=== PATIENT | male | born 1940 | race Caucasian/White ===

== ENCOUNTER 2017-07-12 16:36 | Outpatient (CLI) | payer MEDICARE, OTHER ==
[2017-07-12 17:30] LABS: Hematocrit 32.5 % (42.0-52.0); Mean Platelet Volume 5.8 fL (7.4-10.4); Red Blood Cell (RBC) Count 3.44 mill/uL (4.70-6.10); White Blood Cell (WBC) Count 5.2 thou/uL (4.8-10.8)
--- NOTE | 2017-07-12 17:47 | RAD ---
PA AND LATERAL VIEWS OF CHEST: Date: 07/12/17 Time: 1724 hours HISTORY: Shortness of breath. Dyspnea. FINDINGS: Comparison made with exam dated 03/11/16. There are changes of median sternotomy. The heart size is normal. The aorta is tortuous. Lungs are w ell expanded with stable chronic changes. No focal areas of consolidation, pneumothorax, saurabh pulmo nary edema, or pleural effusions are seen. There is continued elevation of the right hemidiaphragm. IMPRESSION: No acute process. POS: [facility]
[2017-07-12 17:57] LABS: Anion Gap 13 mmol/L (10-20); BUN (Urea Nitrogen) 36 mg/dL (8.4-25.7); Calc. Creatinine Clearance 0 mL/min (70-130); Calcium 9.3 mg/dL (7.8-10.44); Carbon Dioxide 29 mmol/L (23-31); Chloride 103 mmol/L (98-107); Estimated GFR-MDRD 31
== END 2017-07-12 16:37 | disposition home or self-care (01) ==
LOC: LABBT 16:36
PROVIDERS: ATTEND Urology
DX: Z01.818 Encounter for other preprocedural examination (principal); N40.1 Benign prostatic hyperplasia with lower urinary tract symptoms; R33.9 Retention of urine, unspecified
CPT/HCPCS: 71020; 80048; 85027

== ENCOUNTER 2017-07-17 06:56 | Day surgery (SDC) | payer MEDICARE, OTHER ==
[2017-07-12 16:48] VITALS: BMI 26.4
[2017-07-17] MEDS ORDERED: Levofloxacin 500 mg/D5W 100 ml Premix Bag ONE (08:13)
[2017-07-17] MEDS ORDERED: Promethazine HCl 25 MG/ML VIAL ONE (09:25)
[2017-07-17] MEDS ORDERED: Fentanyl 250 MCG/5 ML VIAL ONE (09:25)
[2017-07-17] MEDS ORDERED: Phenylephrine 10 MG/NS 250 ML 250 ML ONE (09:25)
[2017-07-17] MEDS ORDERED: Furosemide 20 MG/2 ML VIAL ONE (11:10)
[2017-07-17] MEDS ORDERED: Fentanyl 100 MCG/2 ML VIAL ONE (11:46)
--- NOTE | 2017-07-17 12:12 | EKG ---
Test Reason : PREOP Blood Pressure : / mmHG Vent. Rate : 062 BPM Atrial Rate : 000 BPM P-R Int : 000 ms QRS Dur : 092 ms QT Int : 462 ms P-R-T Axes : 000 039 030 degrees QTc Int : 468 ms Atrial fibrillation with slow rate Nonspecific ST-T changes Abnormal ECG When compared with ECG of 02-DEC-2013 08:09, QT has lengthened Confirmed by DR. Loc BECERRA ([id number]) on 07/17/2017 12:11:51 PM Referred By: ESTIVEN TORRES Confirmed By:DR. Loc BECERRA
--- NOTE | 2017-07-17 12:35 | OP ---
DATE OF PROCEDURE: 07/17/2017 PREOPERATIVE DIAGNOSES: Benign prostatic hypertrophy with prior retention, only recently voiding as well as urinary tract infections. POSTOPERATIVE DIAGNOSES: Benign prostatic hypertrophy with prior retention, only recently voiding as well as urinary tract infections. PROCEDURE: GreenLight laser vaporization of prostate with enucleation of the middle lobe, using 220,577 joules. SPECIMENS: Prostate. COMPLICATIONS: None. DRAINS: Remaining 20-Anguillan 2-way. FINDINGS: Enucleation of the large middle lobe, good stream after adequate resection and catheter removed. INDICATIONS: The patient is a 76-year-old male, who was followed in the office for retention. He has also had multiple urinary tract infections. This was all due to BPH, so he was set up for definitive GreenLight laser vaporization of the prostate. However, the week prior to this anticipated date, he actually was able to start voiding and so he had been without a catheter for approximately several days until we brought him to the OR. The patient was brought to the room by anesthesia, lying on table in supine position. After receiving general anesthetic, his legs were placed in lithotomy position, perineum was prepped and draped in usual fashion. Using a 22.5-Anguillan scope and 30-degree lens, it was traversed and the bladder inspected. No lesions were noted. There was debris that was irrigated out. The ureteral orifices were identified in normal position and far enough away from the bladder neck. They were spared throughout the case. A power level of 80 was used to enucleate the middle lobe and then a power level of 80 was used at the bladder neck on the lateral lobes, a power level of 180 was used at the mid gland, and again a power level of 80 was used towards the ureter itself. After a significant amount of resection was done, this scope was removed and the stream was not as good as it was hoped, so further resection occurred both near the view to flatten down the middle lobe as well as at the trigonal ridge, which was taken down to the level of the bladder floor itself. When the scope was removed a good stream was noted. Scope was put back in and some bleeding was noted in anterior and left components, so further vaporization and hemostasis was performed in these areas until there was minimal bleeding noted. Then, the chips were ensured to be all out and sent for specimen. The scope was removed the final time and a 20-Anguillan catheter was placed to gravity. The patient tolerated the procedure well and was then awakened and transferred back in stable condition. ADELINE
[2017-07-17] MEDS ORDERED: Lidocaine 1% PF 5 ML VIAL ONE (14:39)
[2017-07-17] MEDS ORDERED: PHENYLEPHRINE-NS 100 MCG/ML 10 ML SYRINGE ONE (14:39)
[2017-07-17] MEDS ORDERED: Dexamethasone 20 MG/5 ML VIAL ONE (14:39)
[2017-07-17] MEDS ORDERED: Glycopyrrolate 0.2 MG/ML 5 ML SYRINGE ONE (14:39)
[2017-07-17] MEDS ORDERED: Ondansetron HCl/PF 4 MG/2 ML Vial ONE (14:39)
[2017-07-17] MEDS ORDERED: Propofol 200 MG/20 ML VIAL ONE (14:39)
[2017-07-17] MEDS ORDERED: ePHEDrine/0.9% NaCl/PF SYRINGE 50 mg/10 ml ONE (14:39)
== END 2017-07-17 14:00 | disposition home or self-care (01) ==
LOC: SDC 06:56
PROVIDERS: ATTEND Urology
PROC: 0V508ZZ Destruction of Prostate, Via Natural or Artificial Opening Endoscopic (ICD-10-PCS; principal; 2017-07-17)
DX: N40.1 Benign prostatic hyperplasia with lower urinary tract symptoms (principal); R33.9 Retention of urine, unspecified; E11.9 Type 2 diabetes mellitus without complications; I25.10 Atherosclerotic heart disease of native coronary artery without angina pectoris; M19.90 Unspecified osteoarthritis, unspecified site; I48.91 Unspecified atrial fibrillation; Z95.1 Presence of aortocoronary bypass graft; Z79.899 Other long term (current) drug therapy; Z98.890 Other specified postprocedural states; Z87.440 Personal history of urinary (tract) infections; Z82.49 Family history of ischemic heart disease and other diseases of the circulatory system; Z83.3 Family history of diabetes mellitus
CPT/HCPCS: 88305; 93005; 93010; 96374; J1100; J1940; J1956; J2001; J2405; J2550; J2704; J3010

== ENCOUNTER 2018-08-22 09:40 | Outpatient (CLI) | payer MEDICARE, OTHER ==
--- NOTE | 2018-08-22 11:52 | PET ---
PET CT OF BRAIN: HISTORY: 77-year-old male with Alzheimer's disease with late onset. TECHNIQUE: PET CT of the brain was performed following the intravenous administration of 9.6 mCi F18-FDG in the left antecubital fossa. Imaging is performed after an uptake interval of 49 minutes. FINDINGS: Fairly symmetric tracer distribution is seen in the cerebral hemispheres bilaterally. No temporoparie neftali hypometabolism is seen. IMPRESSION: Unremarkable exam. POS: [facility]
--- NOTE | 2018-08-22 12:23 | CT ---
CT OF HEAD NONCONTRAST: INDICATION: Alzheimer's dementia/Alzheimer's disease. COMPARISON: Reference is made to 08/06/2017 exam. FINDINGS: There is stable prominence of the ventricular system with periventricular white matter hypoattenuatio n. Parenchymal volume loss is similar. There is no intracranial hemorrhage, mass effect, or midline shift. Chronic ischemic disease is similar-appearing. IMPRESSION: 1. Stable head CT with parenchymal atrophy and compensatory dilatation of the ventricular system. 2. Microvascular ischemic disease is redemonstrated. There is no acute intracranial hemorrhage or m ass effect. POS: [facility]
== END 2018-08-22 09:41 | disposition home or self-care (01) ==
LOC: PET 09:40 → CT 09:41
PROVIDERS: ATTEND Psychiatry & Neurology Neurology
DX: G30.1 Alzheimer's disease with late onset (principal); G31.9 Degenerative disease of nervous system, unspecified; I67.9 Cerebrovascular disease, unspecified
CPT/HCPCS: 70450; 78608; A9552

== ENCOUNTER 2018-10-07 12:06 | Outpatient (CLI) | payer MEDICARE, OTHER ==
--- NOTE | 2018-10-07 14:29 | ULT ---
RENAL SONOGRAM: HISTORY: Prostatic hypertrophy. Dysuria. FINDINGS: The right kidney is 9.5 cm with diffuse cortical thinning. No hydronephrosis. Complex cyst at the s uperior pole measures up to 2.0 cm. The left kidney is 12.7 cm. Dilatation of the left ureter appears greater than on the 05/24/2017 CT e xam. Small cysts are present at the superior pole measuring up to 1.0 cm. No hydronephrosis. The l arge exophytic cyst at the inferior pole of the left kidney on prior CT is not well documented on denae dey's sonogram. Urinary bladder is incompletely distended. Bilateral ureteral jets are visualized. IMPRESSION: 1. Left ureter is dilated up to 3.4 cm. This appears greater than on the CT from 05/24/2017. Bilate ral ureteral jets are seen in the urinary bladder. 2. Bilateral renal cysts. POS: [facility]
== END 2018-10-07 12:07 | disposition home or self-care (01) ==
LOC: BICULT 12:06
PROVIDERS: ATTEND Urology
DX: N40.1 Benign prostatic hyperplasia with lower urinary tract symptoms (principal); N28.1 Cyst of kidney, acquired; N28.82 Megaloureter
CPT/HCPCS: 76770

== ENCOUNTER 2018-10-14 14:44 | Outpatient (CLI) | payer MEDICARE, OTHER ==
--- NOTE | 2018-10-14 16:54 | CT ---
CT ABDOMEN AND PELVIS WITHOUT IV CONTRAST: Technique: Multiple contiguous axial images were obtained of the abdomen and pelvis without IV enhanc ement. Indications: Hematuria. Stone protocol was requested. Comparison: CT abdomen and pelvis, 05-24-17. FINDINGS: Images through the lung bases again show elevated right hemidiaphragm which appears stable. Mild atel ectasis in the right lung base. Cyst in the mid right lobe of liver is stable from the prior exam. Liver, spleen, and pancreas otherwise unremarkable. There continues to be abnormal density layering dependently in the gallbladder consistent with tiny g allstones, similar to prior exam. Adrenal glands unremarkable. Review of kidneys reveals no evidence of hydronephrosis. No evidence of urinary tract calculus. The u reters are normal caliber. There is exophytic low densities lesions arising from the superior left kidney measuring 2 cm which i s stable. There are several subcentimeter exophytic lesions arising from the anterior left renal bonnie ex, at least one of which is hyperdense. These appear stable. The prior exam revealed a large exophytic mass from the inferior left kidney measuring up to 10-12 cm . This cystic lesion has significantly decreased in size. It now has a regular shape and measures 5 c m x 3.8 cm in the axial plane today. Probable small cystic lesion in the right renal cortex which is poorly defined measuring approximatel y 1.0 cm. Small bowel loops are normal caliber. Review of the colon reveals extensive sigmoid diverticulosis wi thout CT evidence for diverticulitis. Aortic shows atherosclerotic calcification. No aneurysm. Osseous structures are unremarkable. IMPRESSION: 1. No evidence of urinary tract calculus or hydronephrosis. 2. An irregularly shaped cystic lesion which is exophytic from the lower pole of the left kidney has significantly decreased in size when compared to 05-24-17 exam. It now has irregular borders with nancy urements above. 3. There are other renal densities, some of which are cystic and at least one of which is hyperdense involving the left renal cortex. Enhancing masses cannot be excluded on this unenhanced study. Consid er further evaluation with IV contrast given the history of hematuria. 4. Hepatic cyst. 5. Cholelithiasis again noted. 6. Diverticulosis of the sigmoid. 7. Incidentally noted is an anterior abdominal wall hernia to the left of midline superior to the umb ilicus with abdominal wall defect measuring approximately 3.7 cm. There is also a small umbilical her dianelys present. 8. Elevated right hemidiaphragm is stable in appearance. POS: [facility]
== END 2018-10-14 14:45 | disposition home or self-care (01) ==
LOC: BICCT 14:44
PROVIDERS: ATTEND Urology
DX: R31.29 Other microscopic hematuria (principal); K76.89 Other specified diseases of liver; K80.20 Calculus of gallbladder without cholecystitis without obstruction; N28.89 Other specified disorders of kidney and ureter; Q79.1 Other congenital malformations of diaphragm; K57.30 Diverticulosis of large intestine without perforation or abscess without bleeding; K42.9 Umbilical hernia without obstruction or gangrene
CPT/HCPCS: 74176; 81001; 87086; 88112

== ENCOUNTER 2019-02-18 17:52 | Inpatient (IN) | payer MEDICARE ==
[2019-02-18] MEDS ORDERED: hydrALAZINE 20 MG/ML VIAL ONE (19:23)
--- NOTE | 2019-02-18 19:57 | PDOC.FPRHP ---
- History of Present Illness Chief Complaint: SOB History of Present Illness: This is an 78 yo male with a pmh of HTN, HLD, BPH, CHF, MARYLU, DM2, CKD 3 who presents to the ED from [place] [facility] with a cc of SOB. Pt and reports Sunday he noticed increased SOB. Denies chest pain, dizziness. Started taking double lasix at that time which helped. This morning is breathing worsened. Pt takes 10 mg of lasix daily normally. Dr. Chaves has been trying take pt off lasix due to renal function. denies home O2 but pt dose us CPAP at night CHF, CKD, HTN, DM2, MARYLU, no cpap ED Course: hydralazine 10 mg - Allergies/Adverse Reactions Allergies Allergy/AdvReac Type Severity Reaction Status Date / Time No Known Allergies Allergy Verified 02/19/19 06:05 - Home Medications Medication Instructions Recorded Confirmed Type Calcium Carbonate/Vitamin D3 500 tab PO DAILY 11/02/14 02/18/19 History [Calcium 600 + Vitamin D 400] DULoxetine [Cymbalta] 60 mg PO DAILY 11/02/14 02/18/19 History Diltiazem HCl [Cardizem LA] 240 mg PO DAILY 11/02/14 02/18/19 History Fish Oil 1,200 mg PO BID 11/02/14 02/18/19 History Lactobacillus Acidophilus 1 tab PO BID 11/02/14 02/18/19 History [Acidophilus] Multivitamin [Daily Multiple 1 tablet PO DAILY 11/02/14 02/18/19 History Vitamin] Rivastigmine Patch [Exelon Patch] 13.3 mg TOP Q24HR 11/02/14 02/18/19 History Simvastatin 10 mg PO HS 11/02/14 02/18/19 History Carvedilol [Coreg] 12.5 mg PO BID 05/15/17 02/18/19 History Docusate [Colace] 100 mg PO BID 05/15/17 02/18/19 History Dulaglutide [Trulicity] 0.75 mg SC Q7D 05/15/17 02/18/19 History Ferrous Sulfate [Feosol] 325 mg PO DAILY 05/15/17 02/18/19 History Loratadine [Claritin] 10 mg PO HS 05/15/17 02/18/19 History Ubidecarenone [Coenzyme Q-10] 200 mg PO DAILY 05/15/17 02/18/19 History Finasteride [Proscar] 5 mg PO DAILY #30 tab NS 06/13/17 02/18/19 Rx Apixaban [Eliquis] 5 mg PO BID tab 08/07/17 02/18/19 Rx Allopurinol [Zyloprim] 100 mg PO DAILY 02/18/19 02/18/19 History Furosemide [Lasix] 20 mg PO DAILY 02/18/19 02/18/19 History Potassium Chloride [K-Dur] 20 meq PO DAILY 02/18/19 02/18/19 History - History PMHx: Melanoma, PSHx: CABG 1999, Left knee replacement, Hip replacement 2017, hernia repair x2 FHx: non contributory Social: Social drinking, denies smoking or drug use - Review of Systems General: denies: fever/chills Eyes: denies: eye pain, vision changes ENT: reports: nasal congestion. denies: rhinorrhea Respiratory: reports: cough, shortness of breath, exercise intolerance Cardiovascular: reports: orthopnea. denies: chest pain, palpitation, edema, paroxysmal nocturnal dyspnea Gastrointestinal: denies: nausea, vomiting, diarrhea, constipation, abdominal pain Genitourinary: denies: incontinence Skin: denies: rashes, lesions Musculoskeletal: denies: pain, tenderness Neurological: denies: numbness, syncope Psychological: denies: anxiety, depression - Vital signs BP: 167/103 HR: 69 RR: 20 Tmax: 97.7 Pox: 94% on ra Wt: 97 kg - Physical Exam Constitutional: NAD, well developed, other (AAO to person and place, baseline) HEENT: normocephalic and atraumatic, PERRLA, conjunctiva clear, grossly normal vision, grossly normal hearing, MMM Neck: other (JVD, hepatojugular reflex) Chest: no-tender to palpation, no lesions Heart: normal S1/S2, no murmurs/rubs/gallops, pulses present, other -Heart: regular rate, irregular rhythm Lungs: good air movement, other (crackles at bilateral bases) Abdomen: soft, bowel sounds present, no masses/distention Musculoskeletal: normal structure, ROM grossly normal Neurological: CN II-XII intact Skin: good turgor, capillary refill <2 seconds Heme/Lymphatic: no unusual bruising or bleeding Psychiatric: normal mood and affect FMR H&P: Results - Labs Result Diagrams: 02/19/19 04:34 02/19/19 04:34 - Radiology Interpretation Chest x-ray Status: report reviewed by me (interstitial prominence bilaterally. Lung base obscured bu elevated right hemidiaphragm) FMR H&P: A/P - Problem List (1) CHF (congestive heart failure) Current Visit: Yes Status: Acute Code(s): I50.9 - HEART FAILURE, UNSPECIFIED (2) Benign hypertension Current Visit: No Status: Chronic Code(s): I10 - ESSENTIAL (PRIMARY) HYPERTENSION (3) Hypertension Current Visit: No Status: Chronic Code(s): I10 - ESSENTIAL (PRIMARY) HYPERTENSION (4) Type 2 diabetes mellitus Current Visit: No Status: Chronic - Plan This is an 78 yo male with a pmh of HTN, HLD, CHF, afib, CKD 3 Acute hypoxic respiratory failure 2/2 CHF exacerbation -Admit to tele -BNP 189, troponin negative x3 -Start on lasix 20mg IV BID -No echo on file, pending echo -Pending procal Afib rate controlled -Continue home diltiazem HTN -Continue home meds Hypothyroidism -Continue home meds Dementia -Encourage redirection and stimulation during the day MARYLU -Continue CPAP DM2 -Continue home meds Code: Full Prophylaxis: Dedra Family: and son at bedside Fluids: SL Diet: HH, CC, fluid restriction Disposition: DC in 2-3 days PCP: [facility] FMR H&P: Upper Level - Plan Date/Time: 02/18/191951 Sumeet Chavez MD, have evaluated this patient and agree with findings/plan as outlined by internal medicine nurse practitioner resident. Pertinent changes/additions are listed here. 78 y/o M w/ PMHx of CHF and CKD4 presents as a transfer from [place] ER for suspected CHF exacerbation. Per , pt w/ increased WOB which started this past Sunday which improved after doubling up on his home dose of Lasix. However , this returned this AM. Has not been given an additional dose of Lasix prior to going to the ER. Denies any fever, worsening resp status in the supine position, LE edema. Reports he never gets LE swelling w/ his CHF exacerbations. Does report a mild cough w/ some mucous production. No fever/chills. Vitals per internal medicine nurse practitioner note Trop 0.034 (baseline) EKG A-fib, rate 70s. Occasional PVCs CXR Pulm vasc congestion w/ R-pleural effusion Exam Crackles bases b/l R>L w/ scattered wheezes. No LE edema 78 y/o M w/: 1) CHF exacerbation - Pt w/ subjective SOB and pulm vasc congestion on imaging consistent w/ CHF exac. - BNP not very elevated from prior ER visits, but exam and sxs consistent - Will continue to diurese w/ strict I/Os, daily weights, and 1500 cc/day fluid restrict - Cont. w/ home CHF medications - Will check procal to r/o possible underlying PNA as well - Consider touching base w/ nephron in the AM given his hx of CKD if having difficulty with diuresis and worsening of his renal fxn 2) Other chronic problems per internal medicine nurse practitioner note Addendum - Attending - Attending Attestation Date/Time: 02/19/19 2109 I personally evaluated the patient and discussed the management with Dr. Daniel last night. See separate note. I agree with the History, Examination, Assessment and Plan documented above with any addition or exceptions noted below.
[2019-02-18 20:02] LABS: CKMB 2.7 ng/mL (0-6.6)
[2019-02-18] MEDS ORDERED: HumaLOG 300 UNITS/3 ML VIAL SC PRN ×2 (22:33)
[2019-02-18] MEDS ORDERED: Dextrose 50% Abboject 50 ML SYRINGE SLOW IVP PRN (22:33)
[2019-02-18] MEDS ORDERED: Ondansetron PF 4 MG/2 ML Vial IVP PRN (22:33)
[2019-02-18] MEDS ORDERED: Acetaminophen 325 MG TAB PO PRN (22:33)
[2019-02-18] MEDS ORDERED: Ondansetron ODT 4 MG TAB PO PRN (22:33)
[2019-02-18] MEDS ORDERED: Dextrose 5% in Water 1,000 ML IV PRN (22:33)
[2019-02-18] MEDS ORDERED: Acetaminophen 650 MG Suppository PR PRN (22:33)
[2019-02-18 22:40] VITALS: BMI 27.0
[2019-02-18 23:23] LABS: Troponin I 0.029 ng/mL (< 0.028)
[2019-02-18] MEDS ORDERED: DULAGLUTIDE 0.75 MG SC SCH (23:30)
--- NOTE | 2019-02-18 23:49 | PDOC.EVN ---
Event Note - Event Note Event Note: Date/Time: 02/18/19 2724 I personally evaluated the patient and discussed the management with Dr. Heath at time of admission. H&P pending. I agree with the History, Examination, Assessment and Plan as discussed. I think there is significant bronchitis present. Will start steroids and scheduled albuterol treatment.
[2019-02-19] MEDS: hydrALAZINE 20 MG/ML VIAL SLOW IVP PRN ×2 (00:02→04:16)
[2019-02-19] MEDS: Rivastigmine 9.5mg/24 Hour PATCH TOP SCH (00:02)
[2019-02-19] MEDS ORDERED: Albuterol Sulfate 2.5 mg/3 ml Neb ONE (00:07)
[2019-02-19 01:49] LABS: Troponin I 0.026 ng/mL (< 0.028)
[2019-02-19] MEDS: Albuterol Sulfate 2.5 mg/3 ml Neb NEB SCH ×6 (02:12→22:30)
[2019-02-19] MEDS: Furosemide 20 MG/2 ML VIAL SLOW IVP SCH ×2 (04:16→14:56)
[2019-02-19 05:30] LABS: #Eosinphils 0.6 thou/uL (0.0-0.7); #Lymphocytes 1.6 thou/uL (1.20-3.40); #Monocytes 0.5 thou/uL (0.11-0.59); #Neutrophils 3.8 thou/uL (1.40-6.50); %Basophils 0.4 % (0.0-1.0); %Eosinophils 8.8 % (0.0-10.0); %Lymphocytes 24.7 % (21.0-51.0); %Monocytes 7.6 % (0.0-10.0); %Neutrophils 58.4 % (42.0-75.0); Hemoglobin 11.3 g/dL (14.0-18.0); Mean Corpuscular HGB CONC 33.9 g/dL (32.0-36.0); Mean Corpuscular Hemoglobin 33.8 pg (27.0-31.0); Mean Corpuscular Volume 99.7 fL (78.0-98.0); Mean Platelet Volume 6.4 fL (7.4-10.4); Platelet Count 195 thou/uL (130-400); RBC Distribution Width 15.3 % (11.5-14.5); Red Blood Cell (RBC) Count 3.35 mill/uL (4.70-6.10); White Blood Cell (WBC) Count 6.4 thou/uL (4.8-10.8)
[2019-02-19 05:57] LABS: Anion Gap 15 mmol/L (10-20); BUN (Urea Nitrogen) 33 mg/dL (8.4-25.7); Calc. Creatinine Clearance 34 mL/min (70-130); Calcium 9.7 mg/dL (7.8-10.44); Carbon Dioxide 27 mmol/L (23-31); Chloride 106 mmol/L (98-107); Estimated GFR-MDRD 26; Glucose 127 mg/dL (83-110); Potassium 3.3 mmol/L (3.5-5.1); Sodium 145 mmol/L (136-145)
[2019-02-19] MEDS: Saccharomyces boulardii 250 MG CAP PO SCH ×2 (08:42→21:42)
[2019-02-19] MEDS: Potassium Chloride 20 MEQ TAB PO SCH (08:43)
[2019-02-19] MEDS: Ferrous Sulfate 325 MG TAB PO SCH (08:43)
[2019-02-19] MEDS: Apixaban 5 MG TAB PO SCH ×2 (08:43→21:43)
[2019-02-19] MEDS: Docusate 100 MG CAP PO SCH ×2 (08:44→21:43)
[2019-02-19] MEDS: Ubidecarenone 50 MG CAP PO SCH (08:44)
[2019-02-19] MEDS: Finasteride 5 MG TAB PO SCH (08:44)
[2019-02-19] MEDS: Multivitamin W/ Minerals 1 TAB PO SCH (08:44)
[2019-02-19] MEDS: Allopurinol 100 MG TAB PO SCH (08:44)
[2019-02-19] MEDS: DULoxetine 60 MG CAP PO SCH (08:45)
[2019-02-19] MEDS: prednisoLONE 10 MG ODT TAB PO SCH (08:45)
[2019-02-19] MEDS: Carvedilol 6.25 MG TAB PO SCH ×2 (08:53→21:44)
--- NOTE | 2019-02-19 08:56 | PDOC.FM ---
- Subjective Subjective: Patient reports his SOB has improved. He is resting comfortably on 2L O2 by NC. He denies any chest pain, palpitations, edema. He does report some wheezing and cough. Denies any fever, chills, N/V. He is tolerating PO. He reports that Dr. Chaves had him only taking his lasix prn recently due to his declining kidney function. - Objective MAR Reviewed: Yes Vital Signs & Weight: Vital Signs (12 hours) Temp Pulse Resp BP Pulse Ox 02/19/19 08:44 85 02/19/19 07:50 97.8 F 85 18 159/89 H 98 02/19/19 06:33 94 L 02/19/19 06:32 85 16 94 L 02/19/19 05:05 166/92 H 02/19/19 03:52 97.3 F L 86 20 191/86 H 92 L 02/19/19 02:14 93 L 02/19/19 02:12 80 16 93 L 02/19/19 00:02 73 02/18/19 22:17 97.5 F L 73 18 198/107 H 99 Weight Weight 97.114 kg I&O: 02/18/19 02/19/19 02/20/19 06:59 06:59 06:59 Intake Total 200 Output Total 400 Balance -200 Result Diagrams: 02/19/19 04:34 02/19/19 04:34 Phys Exam - Physical Examination Constitutional: NAD HEENT: moist MMs, sclera anicteric Respiratory: no rales, no rhonchi few scattered wheezes, poor air movement in bilateral lower lobes irregular rhythm, regular rate, no murmur Gastrointestinal: soft, non-tender, no distention, positive bowel sounds Musculoskeletal: no edema, pulses present Neurological: non-focal, moves all 4 limbs Psychiatric: normal affect, A&O x 3 Skin: normal turgor, cap refill <2 seconds Dx/Plan (1) Acute respiratory failure with hypoxia Code(s): J96.01 - ACUTE RESPIRATORY FAILURE WITH HYPOXIA Status: Acute (2) Acute exacerbation of CHF (congestive heart failure) Code(s): I50.9 - HEART FAILURE, UNSPECIFIED Status: Acute (3) HLD (hyperlipidemia) Code(s): E78.5 - HYPERLIPIDEMIA, UNSPECIFIED Status: Acute (4) MARYLU on CPAP Code(s): G47.33 - OBSTRUCTIVE SLEEP APNEA (ADULT) (PEDIATRIC); Z99.89 - DEPENDENCE ON OTHER ENABLING MACHINES AND DEVICES Status: Acute (5) A-fib Code(s): I48.91 - UNSPECIFIED ATRIAL FIBRILLATION Status: Acute (6) CAD (coronary artery disease) Code(s): I25.10 - ATHSCL HEART DISEASE OF [place] CORONARY ARTERY W/O ANG PCTRS Status: Acute (7) Hypertension Code(s): I10 - ESSENTIAL (PRIMARY) HYPERTENSION Status: Chronic (8) Type 2 diabetes mellitus Status: Chronic (9) Hypokalemia Code(s): E87.6 - HYPOKALEMIA Status: Acute - Plan Plan: Acute hypoxic respiratory failure 2/2 CHF exacerbation BNP 189, troponin negative x3 -lasix 20mg IV BID -Echo -Strict I/O's -Daily weights -Fluid restrict JAYME on CKDIII Andie has been concerned about worsened renal function -Will give lasix, but monitor closely. -If unable to diurese without worsening kidney function, then will consult Dr. Chaves -Avoid other nephrotoxic agents Hypokalemia Likely 2/2 lasix -Will replete and monitor Afib rate controlled -Continue home diltiazem HTN -Continue home meds MARYLU -Continue CPAP at night DM2 -Continue home meds -Accuchecks ACHS -Diabetic diet Code: Full Prophylaxis: Dedra Addendum - Attending - Attending Attestation Date/Time: 02/19/19 0907 I personally evaluated the patient and discussed the management with Dr. Ceballos. I agree with the History, Examination, Assessment and Plan documented above with any addition or exceptions noted below. Acute CHF exac- improving with lasix. Lung exam shows mild crackles but good air mvmt. Wean O2 to keep sats>92%. Acute bronchitis- no PNA- steroids for 5 days. CKD stage IV- appreciate nephro recs to ensure medication collaboration.
[2019-02-19] MEDS: Fish Oil 1,000 MG CAP PO SCH ×2 (08:57→21:43)
[2019-02-19] MEDS ORDERED: Fish Oil 1,000 MG CAP PO SCH (09:00)
[2019-02-19] MEDS ORDERED: Calcium Carbonate + Vit D 1 TAB PO SCH (09:00)
[2019-02-19] MEDS: Calcium Carbonate + Vit D 1 TAB PO SCH (09:21)
--- NOTE | 2019-02-19 11:42 | CON ---
DATE OF CONSULTATION: 02/19/2019 CONSULTING PHYSICIAN: Dr. Ceballos. REASON FOR CONSULTATION: Chronic kidney disease. REASON FOR ADMISSION: Shortness of breath. HISTORY OF PRESENT ILLNESS: An 78-year-old male with history of hypertension, hyperlipidemia, BPH, CHF, type 2 diabetes, and CKD and followed with Dr. Chaves, came to the hospital with shortness of breath. The patient has been having titration of his Lasix dose for fluid overload and was feeling better last week. End of last week, started having some shortness of breath, and his Lasix dose was up, but early part of this week, he started having problems, again was sent to the hospital. The patient is feeling better after IV Lasix now and is ambulating without much difficulty. He is working with PT today. No nausea, vomiting, chest pain, or palpitation reported to me. No fever, chills, or rash. PAST MEDICAL HISTORY: Positive for CHF; CKD, stage 4; hypertension; type 2 diabetes; obstructive sleep apnea; and melanoma. PAST SURGICAL HISTORY: CABG, left knee replacement, hip replacement, and hernia repair. HOME MEDICATIONS: Include: 1. Potassium. 2. Lasix. 3. Calcium with vitamin D. 4. Exelon patch. 5. Claritin. 6. Colace. 7. Fish oil. 8. Eliquis. 9. Zyloprim. 10. Simvastatin. 11. Diltiazem. 12. Finasteride. ALLERGIES: NO KNOWN DRUG ALLERGIES. SOCIAL HISTORY: No smoking, alcohol, or illicit drug abuse. FAMILY HISTORY: No history of kidney disease. REVIEW OF SYSTEMS: CONSTITUTIONAL: Negative for weight loss or gain, ability to conduct usual activities. SKIN: Negative for rash, itching. EYES: Negative for double vision, pain. ENT/MOUTH: Negative for nose bleeding, neck stiffness, pain, tenderness. CARDIOVASCULAR: Negative for palpitations, dyspnea on exertion, orthopnea. RESPIRATORY: Negative for shortness of breath, wheezing, cough, hemoptysis, fever or night sweats. GASTROINTESTINAL: Negative for poor appetite, abdominal pain, heartburn, nausea, vomiting, constipation, or diarrhea. GENITOURINARY: Negative for urgency, frequency, dysuria, nocturia. MUSCULOSKELETAL: Negative for pain, swelling. NEUROLOGIC/PSYCHIATRIC: Negative for anxiety, depression. ALLERGY/IMMUNOLOGIC: Negative for skin rash, bleeding tendency. PHYSICAL EXAMINATION: GENERAL: This is a well-built male, in no apparent distress. VITAL SIGNS: Temperature 97.8, pulse 85, respiratory rate 18, and blood pressure 159/89. HEENT: Atraumatic, normocephalic. Oral mucosa is moist. NECK: Supple. CARDIOVASCULAR: S1, S2 heard. Rate and rhythm regular. RESPIRATORY: Clear. GASTROINTESTINAL: Abdomen is soft. MUSCULOSKELETAL: 1+ edema. DERMATOLOGIC: No skin rash. NEUROLOGIC: Alert and awake. PSYCHIATRIC: Mood and affect normal. LABORATORY DATA: Hemoglobin is 11.3. Potassium 3.3, BUN is 33, and creatinine is 2.3. His baseline creatinine runs around 2.4 to 2.5. ASSESSMENT AND PLAN: 1. Acute kidney injury on chronic kidney disease, stage 4, seems like stable. His GFR at baseline is around 24 to 26 and currently is 26. We will monitor. Agree with Lasix. We will close monitoring of renal function and electrolytes. 2. Cardiorenal syndrome. Continue to optimize renal cardiac medications and Lasix as tolerated with close monitoring as above. 3. Hypokalemia. Replace cautiously. 4. Anemia, most likely from chronic disease. 5. Edema, controlled. 6. Hypertension, elevated. Continue home medications. We will titrate as needed. Continue limit fluid and salt intake and continue diuretics with close monitoring. Avoid nephrotoxins. Medication list reviewed. We will follow. Thank you for the consult. Job ID: [id number]
[2019-02-19] MEDS ORDERED: Simvastatin 20 MG TAB PO SCH (21:00)
[2019-02-19] MEDS ORDERED: Loratadine 10 MG TAB PO SCH (21:00)
[2019-02-19] MEDS ORDERED: Rivastigmine 4.6mg/24 Hour PATCH TD SCH (23:00)
[2019-02-20] MEDS: Rivastigmine 9.5mg/24 Hour PATCH TOP SCH (01:04)
[2019-02-20] MEDS: Albuterol Sulfate 2.5 mg/3 ml Neb NEB SCH ×3 (03:16→10:46)
[2019-02-20] MEDS: hydrALAZINE 20 MG/ML VIAL SLOW IVP PRN (03:27)
[2019-02-20] MEDS: Furosemide 20 MG/2 ML VIAL SLOW IVP SCH (06:01)
[2019-02-20 06:44] LABS: Anion Gap 12 mmol/L (10-20); BUN (Urea Nitrogen) 42 mg/dL (8.4-25.7); Calc. Creatinine Clearance 30 mL/min (70-130); Calcium 9.7 mg/dL (7.8-10.44); Carbon Dioxide 29 mmol/L (23-31); Chloride 105 mmol/L (98-107); Estimated GFR-MDRD 23; Glucose 167 mg/dL (83-110); Potassium 3.7 mmol/L (3.5-5.1); Sodium 142 mmol/L (136-145)
[2019-02-20] MEDS: Ubidecarenone 50 MG CAP PO SCH (08:34)
[2019-02-20] MEDS: Calcium Carbonate + Vit D 1 TAB PO SCH (08:34)
[2019-02-20] MEDS: Potassium Chloride 20 MEQ TAB PO SCH (08:34)
[2019-02-20] MEDS: Multivitamin W/ Minerals 1 TAB PO SCH (08:34)
[2019-02-20] MEDS: Carvedilol 6.25 MG TAB PO SCH (08:35)
[2019-02-20] MEDS: DULoxetine 60 MG CAP PO SCH (08:36)
[2019-02-20] MEDS: Apixaban 5 MG TAB PO SCH (08:36)
[2019-02-20] MEDS: Finasteride 5 MG TAB PO SCH (08:36)
[2019-02-20] MEDS: Allopurinol 100 MG TAB PO SCH (08:36)
[2019-02-20] MEDS: Fish Oil 1,000 MG CAP PO SCH (08:36)
[2019-02-20] MEDS: Docusate 100 MG CAP PO SCH (08:36)
[2019-02-20] MEDS: Ferrous Sulfate 325 MG TAB PO SCH (08:36)
[2019-02-20] MEDS: Saccharomyces boulardii 250 MG CAP PO SCH (08:41)
--- NOTE | 2019-02-20 08:51 | PDOC.FM ---
- Subjective Subjective: Patient reports SOB has improved. He has been on and off O2 yesterday. Used his CPAP overnight. He tolerated PT walking the hallways yesterday without much difficulty. Denies any edema. Denies N/V, abdominal pain, palpitations, chest pain. - Objective MAR Reviewed: Yes Vital Signs & Weight: Vital Signs (12 hours) Temp Pulse Resp BP BP Pulse Ox 02/20/19 08:35 73 184/82 H 02/20/19 08:17 97.4 F L 60 18 184/76 H 93 L 02/20/19 06:53 82 16 92 L 02/20/19 04:35 73 139/99 H 02/20/19 03:27 73 183/85 H 02/20/19 03:16 73 16 92 L 02/20/19 03:15 97.5 F L 73 20 183/85 H 92 L 02/20/19 00:00 94 L 02/19/19 22:30 70 16 95 02/19/19 21:44 141/76 H Weight Weight 96.162 kg I&O: 02/19/19 02/20/19 02/21/19 06:59 06:59 06:59 Intake Total 200 622.5 Output Total 400 1275 225 Balance -200 -652.5 -225 Result Diagrams: 02/19/19 04:34 02/20/19 06:08 Phys Exam - Physical Examination Constitutional: NAD HEENT: moist MMs, sclera anicteric Neck: no nodes, supple Respiratory: no wheezing, no rhonchi, clear to auscultation bilateral bilateral lung rales Cardiovascular: no significant murmur, no rub regular rate, irregular rhythm Gastrointestinal: soft, non-tender, no distention, positive bowel sounds abdominal hernia, easily reducible Musculoskeletal: no edema, pulses present Neurological: non-focal, moves all 4 limbs Psychiatric: normal affect, A&O x 3 Skin: normal turgor, cap refill <2 seconds Dx/Plan (1) Acute respiratory failure with hypoxia Code(s): J96.01 - ACUTE RESPIRATORY FAILURE WITH HYPOXIA Status: Acute (2) Acute exacerbation of CHF (congestive heart failure) Code(s): I50.9 - HEART FAILURE, UNSPECIFIED Status: Acute (3) HLD (hyperlipidemia) Code(s): E78.5 - HYPERLIPIDEMIA, UNSPECIFIED Status: Acute (4) MARYLU on CPAP Code(s): G47.33 - OBSTRUCTIVE SLEEP APNEA (ADULT) (PEDIATRIC); Z99.89 - DEPENDENCE ON OTHER ENABLING MACHINES AND DEVICES Status: Acute (5) A-fib Code(s): I48.91 - UNSPECIFIED ATRIAL FIBRILLATION Status: Acute (6) CAD (coronary artery disease) Code(s): I25.10 - ATHSCL HEART DISEASE OF [place] CORONARY ARTERY W/O ANG PCTRS Status: Acute (7) Hypertension Code(s): I10 - ESSENTIAL (PRIMARY) HYPERTENSION Status: Chronic (8) Type 2 diabetes mellitus Status: Chronic (9) Hypokalemia Code(s): E87.6 - HYPOKALEMIA Status: Acute - Plan Plan: Acute hypoxic respiratory failure 2/2 CHF exacerbation BNP 189, troponin negative x3 Echo showed EF 55-60%, D shaped L vent dilated RV with decreased RV systolic function, R vent systolic pressure 55, dilated aortic root, moderately dilated L and R atria, Moderate MR and TR. -lasix 20mg IV BID -Strict I/O's -Daily weights -Fluid restrict JAYME on CKDIII Chaves has been concerned about worsened renal function -Will give lasix, but monitor closely. -Consulted nephrology, appreciate recs -Avoid other nephrotoxic agents Hypokalemia Likely 2/2 lasix -Will replete and monitor Afib rate controlled -Continue home diltiazem HTN -Continue home meds MARYLU -Continue CPAP at night DM2 -Continue home meds -Accuchecks ACHS -Diabetic diet Code: Full Prophylaxis: Eliquis Dispo: will d/c possible discharge today with nephro and plan for lasix prn and daily weights with close follow-up Addendum - Attending - Attending Attestation Date/Time: 02/20/19 1150 I personally evaluated the patient and discussed the management with Dr. Ceballos I agree with the History, Examination, Assessment and Plan documented above with any addition or exceptions noted below. 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 Patient with good diuresis and symptom relief after excessive salt intake over recent Holiday and became relatively volume overloaded. Patient back to his baseline and stable for d/c today. He will F/u with Nephrology, PCP and Cardiology .
[2019-02-20] MEDS: prednisoLONE 10 MG ODT TAB PO SCH (09:53)
--- NOTE | 2019-02-20 11:36 | PRG ---
DATE OF SERVICE: 02/20/2019 SUBJECTIVE: Patient was seen and examined at bedside and overnight events noted. Patient denies any shortness of breath or chest pain or palpitation. No history of nausea or vomiting or diarrhea or fever or chills or cramps. OBJECTIVE: GENERAL: This is a well-built male, in no apparent distress. VITAL SIGNS: Temperature 97.4. Heart rate 68. Respiratory rate 18. Blood pressure 184/76. HEENT: Atraumatic, normocephalic. Oral mucosa is moist NECK: Supple. CARDIOVASCULAR: S1, S2 heard. Rate and rhythm regular. RESPIRATORY: Clear to auscultation. GASTROINTESTINAL: Abdomen is soft. MUSCULOSKELETAL: No tenderness. No edema. DERMATOLOGIC: No skin rash. NEUROLOGIC: Alert and awake and oriented X3. No focal neurologic deficits. Moving all the extremities. PSYCHIATRIC: Mood and affect normal. LABORATORY DATA: Potassium 3.7, BUN is 42, and creatinine 2.7. ASSESSMENT AND PLAN: 1. Acute kidney injury on chronic kidney disease stage 4, stable. 2. Cardiorenal syndrome okay with Lasix 20 mg p.o. daily with close monitoring of weight and edema at home. 3. Hypokalemia. 4. Edema. 5. Anemia. 6. Hypertension. Continue close monitoring. Follow up with Dr. Chaves as an outpatient. Job ID: [id number]
[2019-02-20 11:39] VITALS: TEMP 98
[2019-02-20 11:58] VITALS: BP 144/81
[2019-02-20] MEDS ORDERED: Apixaban 2.5 MG TAB PO SCH (21:00)
--- NOTE | 2019-02-21 04:19 | DIS ---
DATE OF ADMISSION: 02/18/2019 DATE OF DISCHARGE: 02/20/2019 ADMITTING ATTENDING: Jamarcus Salazar MD DISCHARGE ATTENDING: Eriberto Espino MD CONSULTS: Dr. Briceno with Nephrology. PROCEDURES: None. PRIMARY DIAGNOSES: 1. Acute hypoxic respiratory failure. 2. Congestive heart failure exacerbation. 3. Acute kidney injury on chronic kidney disease, 3. 4. Hypokalemia. SECONDARY DIAGNOSES: 1. Atrial fibrillation, rate controlled. 2. Obstructive sleep apnea, on CPAP. 3. Coronary artery disease. 4. Hypertension. 5. Type 2 diabetes. DISCHARGE MEDICATIONS: 1. Prednisone 40 mg p.o. daily for 2 days. 2. Allopurinol 100 mg p.o. daily. 3. Eliquis 5 mg p.o. b.i.d. 4. Carvedilol 12.5 mg p.o. b.i.d. 5. Diltiazem 240 mg p.o. daily. 6. Docusate 100 mg p.o. b.i.d. 7. Duloxetine 60 mg p.o. daily. 8. Ferrous sulfate 325 mg p.o. daily. 9. Finasteride 5 mg p.o. daily. 10. Fish oil 1200 mg p.o. b.i.d. 11. Loratadine 10 mg p.o. at bedtime. 12. Potassium chloride 20 mEq p.o. daily. 13. Rivastigmine patch 13.3 mg topical q.24 hours. 14. Simvastatin 10 mg p.o. at bedtime. 15. Coenzyme Q10, 200 mg p.o. daily. 16. Trulicity 0.75 mg subcu q.7 days. 17. Furosemide 20 mg p.o. daily. DISCONTINUED MEDICATIONS: None. HISTORY OF PRESENT ILLNESS/HOSPITAL COURSE: This is an 78-year-old male with past medical history of hypertension, CHF, and type 2 diabetes, who presented to the ER complaining of shortness of breath. The patient has been taking his Lasix as needed instead of daily due to his chronic kidney disease and worsened kidney function. The patient found on Sunday that he was getting more short of breath, took 2 of his Lasix tablets, and then by Sunday started getting increasingly short of breath. The patient denied any edema. The patient reported cough. Denies chest pain or palpitations. The patient was found to have on chest x-ray that showed engorged pulmonary vessels, slight blunting of costophrenic angles, and enlarged cardiac silhouette. The patient had a procalcitonin 0.05, had a BNP of 189.8. Has indeterminate troponins down trended. Had a creatinine of 2.53 and the patient was started on oxygen by nasal cannula due to low oxygen saturations. The patient was given IV Lasix and diuresed. He was down 2 kg by the time of discharge. The patient is symptomatically improved, was able to be weaned off oxygen by second day of admission. He had an echocardiogram done that showed an ejection fraction of 55% to 60% and a D shaped left ventricle consistent with right ventricular volume and pressure overload, dilated right ventricle with decreased right ventricular systolic function and right ventricular systolic pressure of 55. The patient had a moderately dilated left atrium and right atrium with moderate mitral regurgitation and tricuspid regurgitation. Due to the patient's chronic kidney disease, Dr. Briceno was consulted with Nephrology. He agreed with diuresis, and upon time of discharge, discussed with him discharging the patient on consistently 20 mg of furosemide, but to continue doing daily weight and salt restrict. The patient was discharged home in stable condition. DISCHARGE INSTRUCTIONS: 1. Location: Home. 2. Diet: Heart healthy with low-sodium diet and fluid restriction. 3. Activity: As tolerated. 4. Followup: Follow up with Dr. Butcher within 7 days, with Dr. Chaves within 2 to 3 weeks. Job ID: [id number]
== END 2019-02-20 14:49 | disposition home health service (06) | DRG 291 ==
LOC: ERS 17:52 → 2NO 22:17
PROVIDERS: ADMIT Family Medicine; ATTEND Family Medicine
DX: I13.0 Hypertensive heart and chronic kidney disease with heart failure and stage 1 through stage 4 chronic kidney disease, or unspecified chronic kidney disease (principal); J96.01 Acute respiratory failure with hypoxia; I50.33 Acute on chronic diastolic (congestive) heart failure; N18.4 Chronic kidney disease, stage 4 (severe); N17.9 Acute kidney failure, unspecified; E78.5 Hyperlipidemia, unspecified; I48.91 Unspecified atrial fibrillation; E03.9 Hypothyroidism, unspecified; F03.90 Unspecified dementia, unspecified severity, without behavioral disturbance, psychotic disturbance, mood disturbance, and anxiety; E11.22 Type 2 diabetes mellitus with diabetic chronic kidney disease; M10.9 Gout, unspecified; I25.10 Atherosclerotic heart disease of native coronary artery without angina pectoris; E11.51 Type 2 diabetes mellitus with diabetic peripheral angiopathy without gangrene; N40.0 Benign prostatic hyperplasia without lower urinary tract symptoms; E87.6 Hypokalemia; D63.1 Anemia in chronic kidney disease; J20.9 Acute bronchitis, unspecified; G47.33 Obstructive sleep apnea (adult) (pediatric); Z79.899 Other long term (current) drug therapy; Z95.1 Presence of aortocoronary bypass graft; Z79.01 Long term (current) use of anticoagulants; Z79.4 Long term (current) use of insulin; Z99.89 Dependence on other enabling machines and devices
CPT/HCPCS: 36415; 36416; 80048; 82553; 84145; 84484; 85025; 93005; 93306; 93798; 94640; 96374; J0360; J1940; J7510; J7611

== ENCOUNTER 2019-06-26 07:08 | Emergency (ER) | payer MEDICARE ==
[2019-06-26 07:27] LABS: #Eosinphils 0.2 thou/uL (0.0-0.7); #Monocytes 0.4 thou/uL (0.11-0.59); #Neutrophils 4.2 thou/uL (1.40-6.50); %Basophils 0.1 % (0.0-1.0); %Eosinophils 2.9 % (0.0-10.0); %Lymphocytes 17.1 % (21.0-51.0); %Monocytes 6.1 % (0.0-10.0); %Neutrophils 73.7 % (42.0-75.0); Hemoglobin 11.3 g/dL (14.0-18.0); Mean Corpuscular HGB CONC 33.3 g/dL (32.0-36.0); Mean Corpuscular Hemoglobin 31.7 pg (27.0-31.0); Mean Corpuscular Volume 95.4 fL (78.0-98.0); Mean Platelet Volume 6.1 fL (7.4-10.4); Platelet Count 183 thou/uL (130-400); RBC Distribution Width 14.7 % (11.5-14.5); Red Blood Cell (RBC) Count 3.56 mill/uL (4.70-6.10); White Blood Cell (WBC) Count 5.7 thou/uL (4.8-10.8)
[2019-06-26 07:52] LABS: ALT (SGPT) 13 U/L (8-55); AST (SGOT) 14 U/L (5-34); Albumin 4.2 g/dL (3.4-4.8); Alkaline Phosphatase 94 U/L (40-110); Anion Gap 12 mmol/L (10-20); BUN (Urea Nitrogen) 28 mg/dL (8.4-25.7); Bilirubin, Total 1.5 mg/dL (0.2-1.2); CK (CPK) 61 U/L (30-200); Calc. Creatinine Clearance 0 mL/min (70-130); Calcium 9.5 mg/dL (7.8-10.44); Carbon Dioxide 26 mmol/L (23-31); Chloride 104 mmol/L (98-107); Estimated GFR-MDRD 26; Globulin 3.1 g/dL (2.4-3.5); Glucose 147 mg/dL (83-110); Lipase 23 U/L (8-78); Potassium 3.7 mmol/L (3.5-5.1); Protein, Total 7.3 g/dL (5.8-8.1); Sodium 138 mmol/L (136-145)
--- NOTE | 2019-06-26 07:52 | RAD ---
EXAM: Single view of the chest HISTORY: Shortness of breath COMPARISON: 05/06/2019 FINDINGS: Single view of the chest shows a normal sized cardiomediastinal silhouette. There is eleva tion right hemidiaphragm. The patient is status post CABG. There is no evidence of consolidation, mass, or pleural effusion. The bones are unremarkable. IMPRESSION: No evidence of acute cardiopulmonary disease
== END 2019-06-26 09:47 | disposition home or self-care (01) ==
LOC: ERS 07:08
DX: R06.00 Dyspnea, unspecified (principal); I25.10 Atherosclerotic heart disease of native coronary artery without angina pectoris; I49.9 Cardiac arrhythmia, unspecified; I48.91 Unspecified atrial fibrillation; E11.40 Type 2 diabetes mellitus with diabetic neuropathy, unspecified; I10 Essential (primary) hypertension; E03.9 Hypothyroidism, unspecified; M10.9 Gout, unspecified; F03.90 Unspecified dementia, unspecified severity, without behavioral disturbance, psychotic disturbance, mood disturbance, and anxiety; G47.30 Sleep apnea, unspecified; F41.9 Anxiety disorder, unspecified; F32.9 Major depressive disorder, single episode, unspecified; Z79.01 Long term (current) use of anticoagulants; Z87.2 Personal history of diseases of the skin and subcutaneous tissue; Z79.899 Other long term (current) drug therapy
CPT/HCPCS: 71045; 80053; 82550; 83690; 83880; 84484; 85025; 93005; 94640; 96374; J7620